=== PATIENT | female | born 1960 | race Caucasian/White ===

== ENCOUNTER → 2017-02-07 | Outpatient (CLI) | payer BC | LOC: MC.RAD 06:56 | DX: Z12.31 Encounter for screening mammogram for malignant neoplasm of breast (principal) ==

== ENCOUNTER → 2018-02-13 | Outpatient (CLI) | payer BC | LOC: MC.RAD 08:14 | DX: Z12.31 Encounter for screening mammogram for malignant neoplasm of breast (principal); N64.89 Other specified disorders of breast ==

== ENCOUNTER → 2018-02-17 | Outpatient (CLI) | payer BC | LOC: MC.RAD 09:00 | DX: N63.11 Unspecified lump in the right breast, upper outer quadrant (principal); N64.89 Other specified disorders of breast | CPT/HCPCS: G0279 ==

== ENCOUNTER → 2018-02-18 | Outpatient (CLI) | payer BC | LOC: MC.RAD 07:54 | DX: N63.10 Unspecified lump in the right breast, unspecified quadrant (principal); N64.89 Other specified disorders of breast ==

== ENCOUNTER 2018-06-04 11:36 | Day surgery (SDC) | payer BC ==
[~2018-06-04] VITALS: Ht 157.5 cm; Wt 60.3 kg
[2018-06-04] MEDS ORDERED: DECADRON 4MG TAB4 MG PO (12:46)
[2018-06-04] MEDS ORDERED: SINGULAIR 110 MG/TAB PO (12:48)
[2018-06-04] MEDS ORDERED: COMPAZINE 110 MG/TAB PO (12:48)
[2018-06-04] MEDS ORDERED: TYLENOL #21 TAB PO (12:49)
[2018-06-04] MEDS ORDERED: MULTIPLE VITAMI1 CAP PO (12:50)
[2018-06-04] MEDS ORDERED: B-121000 MCG PO (12:50)
[2018-06-04 13:59] VITALS: BP 97/60; PULSE 78
--- NOTE | 2018-06-04 13:59 | NUR ---
Patient returns to room 5 per cart and arouses to verbal stimuli. Port a catheter noted on the left side and is accessed. Temp 97.5 and room air sats 94%. IV fluids infusing and spouse in room. Siderails up x2. Taking sips of water.
[2018-06-04] MEDS ORDERED: NORCO 325 MG-51 TAB PO (14:01)
[2018-06-04 14:14] VITALS: BP 102/65; PULSE 75
--- NOTE | 2018-06-04 14:14 | NUR ---
Resting and talking with Dr. Escobar. Denies pain or nausea. No swelling or bleeding at port a catheter insertion site.
[2018-06-04 14:29] VITALS: BP 105/66; PULSE 74
--- NOTE | 2018-06-04 14:29 | NUR ---
Eating muffin and drinking juice.
[2018-06-04 14:44] VITALS: BP 98/68; PULSE 75
--- NOTE | 2018-06-04 14:44 | NUR ---
Room air sats 98%. Port a catheter site free of redness or swelling. Continues to deny pain. Spouse in room.
--- NOTE | 2018-06-04 15:00 | NUR ---
Talking on phone with son. Allowed to visit.
--- NOTE | 2018-06-04 15:15 | NUR ---
IV discontinued and given dismissal instructions for home cares and follow up as needed. Provided script for [facility] 5mg.
--- NOTE | 2018-06-04 15:18 | NUR ---
Patient dismissed to home per private vehicle driven by spouse with dismissal instructions in hand. Taken to the car per private vehicle and assisted into vehicle.
[2018-06-04 16:13] VITALS: BP 110/70; PULSE 87; TEMP 97.3
== END 2018-06-04 15:18 | disposition home or self-care (01) ==
LOC: SDCO 11:36
DX: C50.411 Malignant neoplasm of upper-outer quadrant of right female breast (principal); J45.909 Unspecified asthma, uncomplicated; Z79.899 Other long term (current) drug therapy; D68.51 Activated protein C resistance
CPT/HCPCS: C1788; J0690; J1644; J2250; J2405; J2704; J3010; J7120

== ENCOUNTER → 2023-05-21 | Outpatient (CLI) | payer BC ==
[~2023-05-21] MED LIST: B-121000 MCG PO; COMPAZINE 110 MG/TAB PO; DECADRON 4MG TAB4 MG PO; MULTIPLE VITAMI1 CAP PO; NORCO 325 MG-51 TAB PO; SINGULAIR 110 MG/TAB PO; TYLENOL #21 TAB PO
== END ==
LOC: COL.CARD 08:43
DX: J45.909 Unspecified asthma, uncomplicated (principal)